=== PATIENT | female | born 1975 | race Caucasian/White ===

== ENCOUNTER 2016-09-15 17:05 | Emergency (ER) | payer OTHER ==
--- NOTE | ~2016-09-15 | CR20 ---
[facility] A Service of [facility] RADIOLOGY TEXT RESULTS PATIENT: MARY MILIAN LOCATION: CFTX : 77 UNIT #: [id number] AGE: [address]: Edi Snyder SEX: F ORDER DR: [id number] [place] [id number] [facility]. [place], [place] [address] [id number] E MR#: [id number] Acc #: [id number] NAME: MARY MILIAN : 1975 SEX: F STUDY DATE/TIME: 09/15/2016 17:41 UNIT: [facility] ROOM: STUDY DESCRIPTION: CR Ankle Min 3 Views Lt Attending Physician: Edi Snyder P.A.-C. Ordering Physician: River Agarwal M.D. MEDICAL IMAGING REPORT This report is preliminary unless electronic signature is present EXAM Three views left ankle. INDICATIONS Left ankle and left foot pain. This is shooting down the left foot. Patient tripped and twisted the left ankle today. FINDINGS This patient has a transversely oriented fracture involving the lateral malleolus and is really not significantly displaced. There is soft tissue swelling noted about the ankle and ankle effusion as well. No aggressive osseous abnormalities are seen. I do question if this patient also has a fracture of the navicular bone as a lucency is seen extending through it; given history of trauma, I would suggest further evaluation with CT. IMPRESSION Transversely oriented, essentially nondisplaced fracture of the lateral malleolus. I also question if there is a subtle lucency involving the navicular bone, which may reflect a nondisplaced fracture. Further evaluation with CT is suggested. Dictated by... Catherine Mendiola M.D. THIS IS AN ELECTRONICALLY VERIFIED REPORT Catherine Mendiola M.D. at 09/16/2016 4:38 PM AFF/psc TD: 09/16/2016 03:13 JOB #: [id number] MEDICAL IMAGING REPORT [facility] A Service of [facility] RADIOLOGY TEXT RESULTS PATIENT: MARY MILIAN LOCATION: [place] : [birth year] UNIT #: [id number] AGE: [address]: Edi Snyder PAC SEX: F ORDER DR: Page 1 of 1 COPY
--- NOTE | ~2016-09-15 | CR252 ---
[facility] A Service of [facility] RADIOLOGY TEXT RESULTS PATIENT: MARY MILIAN LOCATION: CFTX : [birth year] UNIT #: [id number] AGE: [address]: Edi Snyder SEX: F ORDER DR: [id number] [facility] [address] [place], [place] [address] [id number] E MR#: [id number] Acc #: [id number] NAME: MARY MILIAN : 1975 SEX: F STUDY DATE/TIME: 09/15/2016 18:35 UNIT: [facility] ROOM: STUDY DESCRIPTION: CR Tibia and Fibula 2 Views Lt Attending Physician: Edi Snyder P.A.-C. Ordering Physician: Devon Metcalf M.D. MEDICAL IMAGING REPORT This report is preliminary unless electronic signature is present EXAM Left tibia and fibula 2 view study HISTORY Trauma with pain in the upper to mid tibia fibula location. Patient tripped today and twisted her lower leg. COMMENT Four films of the left tibia-fibula submitted for review for a two-view study. There is an earlier ankle series. There is a horizontally oriented lucency in the fibula distally at the lateral malleolus consistent with an age-indeterminate fracture line. No other possible fracture, dislocation or radiopaque foreign body appreciated. Please correlate further clinically. IMPRESSION Age-indeterminate lateral malleolus fracture. Otherwise no acute fracture left tibia-fibula appreciated. Dictated by... Tari Parsons M.D. THIS IS AN ELECTRONICALLY VERIFIED REPORT Tari Parsons M.D. at 09/16/2016 2:25 PM SOL/myrtle TD: 09/16/2016 06:50 JOB #: [id number] MEDICAL IMAGING REPORT Page 1 of 1 COPY
--- NOTE | ~2016-09-15 | CR126 ---
[facility] A Service of [facility] & [facility] RADIOLOGY TEXT RESULTS PATIENT: MARY MILIAN LOCATION: CFTX : [birth year] UNIT #: [id number] AGE: [address]: Edi Snyder SEX: F ORDER DR: [id number] [facility] [address] [place], [place] [address] [id number] E MR#: [id number] Acc #: [id number] NAME: MARY MILIAN : 1975 SEX: F STUDY DATE/TIME: 09/15/2016 17:42 UNIT: [facility] ROOM: STUDY DESCRIPTION: CR Foot Complete Min 3 View Lt Attending Physician: Edi Snyder P.A.-C. Ordering Physician: River Agarwal M.D. MEDICAL IMAGING REPORT This report is preliminary unless electronic signature is present EXAM Three views of the left foot INDICATIONS Left ankle and foot pain. Patient tripped and twisted it today. Pain starts in the ankle and shoots down the foot. FINDINGS There is a subtle lucency involving the navicular bone, which I suspect is probably artifactual in nature. However, it may also be seen on the patient's radiographs of the left ankle. Given history of trauma, I would suggest further evaluation with dedicated CT of the foot. No other acute fracture or subluxation is seen. Patient has an ankle effusion. IMPRESSION There is suggestion of a subtle lucency involving the navicular bone. I suspect this is actually probably artifactual, but I can also see it on the views of the left ankle. Given history of trauma, nondisplaced fracture is not excluded. Further evaluation with CT is suggested. Dictated by... Catherine Mendiola M.D. THIS IS AN ELECTRONICALLY VERIFIED REPORT Catherine Mendiola M.D. at 09/16/2016 4:40 PM AFF/psc TD: 09/16/2016 03:21 JOB #: [id number] MEDICAL IMAGING REPORT Page 1 of 1 COPY
--- NOTE | ~2016-09-15 | CT92 ---
[facility] A Service of [facility] RADIOLOGY TEXT RESULTS PATIENT: MARY MILIAN LOCATION: CFTX : [birth year] UNIT #: [id number] AGE: [address]: Edi Snyder SEX: F ORDER DR: [id number] [facility] [address] [place], [place] [address] [id number] E MR#: [id number] Acc #: [id number] NAME: MARY MILIAN : 1975 SEX: F STUDY DATE/TIME: 09/15/2016 19:23 UNIT: [facility] ROOM: STUDY DESCRIPTION: CT Lower Ext Lt Wo Cont Attending Physician: Edi Snyder P.A.-C. Ordering Physician: River Agarwal M.D. MEDICAL IMAGING REPORT This report is preliminary unless electronic signature is present EXAM CT left foot without contrast, 09/15/2016. HISTORY 40-year-old female with left ankle pain, status post twisting injury today. COMPARISON Left foot and ankle x-rays, 09/15/2016. TECHNIQUE Helical scan performed through the left foot without IV contrast. Multiplanar reformatted images. This CT exam was performed with one or more of the following radiation dose reduction techniques: automatic exposure control, adjustment of mA and/or kV according to patient size, and iterative reconstruction. FINDINGS There is a nondisplaced transverse fracture through the distal tip of the lateral malleolus. The ankle mortise is symmetric. Talar dome intact. There is no evidence of a navicular fracture. There is some mild soft tissue swelling along the lateral aspect of the ankle. Flexor and extensor tendons appear grossly intact. There is some thickening in the region of the talofibular ligaments, suggesting a lateral ankle sprain. IMPRESSION 1. Nondisplaced transverse oblique fracture of the distal tip of the lateral malleolus. 2. No evidence of a navicular fracture. 3. Mild lateral ankle soft tissue swelling and mild thickening of the talofibular ligaments, consistent with provided clinical history of lateral ankle sprain. 4. Preliminary wet read provided by Dr. Varsha Mace at [address] [facility] A Service of [facility] RADIOLOGY TEXT RESULTS PATIENT: MARY MILIAN LOCATION: [facility] : [birth year] UNIT #: [id number] AGE: [address]: Edi Snyder PAC SEX: F ORDER DR: 09/15/2016. Dictated by... Sam Goodrich M.D. THIS IS AN ELECTRONICALLY VERIFIED REPORT Sam Goodrich M.D. at 09/16/2016 4:37 PM RICHELLE/mery TD: 09/16/2016 11:33 JOB #: [id number] MEDICAL IMAGING REPORT Page 1 of 1 COPY
== END 2016-09-15 21:00 | disposition home or self-care (01) ==
LOC: CED 17:05 → CFTX 17:05
DX: S82.65XA Nondisplaced fracture of lateral malleolus of left fibula, initial encounter for closed fracture (principal); F17.210 Nicotine dependence, cigarettes, uncomplicated; X58.XXXA Exposure to other specified factors, initial encounter
CPT/HCPCS: 29515; 73590; 73610; 73630; 73700; 84703; 99284